=== PATIENT | male | born 1995 | race Caucasian/White ===

== ENCOUNTER 2018-09-19 19:03 | Emergency (ER) | payer OTHER | END 2018-09-19 20:19 | disposition home or self-care (01) | LOC: ERS 19:03 | DX: S01.01XA Laceration without foreign body of scalp, initial encounter (principal); W10.9XXA Fall (on) (from) unspecified stairs and steps, initial encounter | CPT/HCPCS: 12002 ==

== ENCOUNTER 2018-09-26 15:43 | Emergency (ER) | payer OTHER | END 2018-09-26 17:02 | disposition home or self-care (01) | LOC: ERS 15:43 | DX: S01.01XD Laceration without foreign body of scalp, subsequent encounter (principal); X58.XXXD Exposure to other specified factors, subsequent encounter ==